=== PATIENT | male | born 1980 | race Caucasian/White ===

== ENCOUNTER 2019-12-26 07:11 | Emergency (ER) | payer SELFPAY ==
[~2019-12-26] VITALS: Ht 190.5 cm; Wt 93.2 kg
[~2019-12-26 07:11] MED LIST: IBUPROFEN800 MG PO; KLONOPIN 0.5MG0.5 MG PO; LORTAB 5/500 501 TAB PO; SYNTHROID0.1 MG/TAB PO; SYNTHROID0.112 MG/T PO; [UNRECOGNIZED DRUG - OTHER]
[2019-12-26 07:22] VITALS: TEMP 96.6
[2019-12-26] MEDS ORDERED: MEDROL 4MG DOSPA4 MG PO (07:52)
[2019-12-26 08:15] VITALS: BP 133/78; PULSE 87
[2019-12-27] MEDS ORDERED: ZOFRAN 4MG T4 MG/TAB PO (03:57)
[2019-12-27] MEDS ORDERED: ATIVAN 0.50.5 MG/TAB PO ×2 (14:41→14:47)
== END 2019-12-26 08:19 | disposition home or self-care (01) ==
LOC: COL.ER 07:11
DX: M54.32 Sciatica, left side (principal); M54.31 Sciatica, right side
CPT/HCPCS: J1885

== ENCOUNTER 2019-12-27 01:05 | Emergency (ER) | payer SELFPAY ==
[~2019-12-27 01:05] MED LIST changes: +MEDROL 4MG DOSPA4 MG PO
[2019-12-27 01:08] VITALS: BP 150/86; TEMP 97.9
[2019-12-27 02:25] LABS: HEMATOCRIT 41.8 % (42.0-52.0); HEMOGLOBIN 14.5 g/dl (13.5-18.0); MEAN CELL VOLUME 92 fl (80.0-100.0); MEAN CORPUSCULAR HEMOGLOBIN 32 pg (27.0-31.0); MEAN CORPUSCULAR HGB CONC 35 g/dl (33.0-37.0); MEAN PLATELET VOLUME 9.9 fl (7.4-10.4); PLATELET COUNT 160 K/mm3 (130-400); RED BLOOD COUNT 4.56 M/mm3 (4.20-5.60); REDCELL DISTRIBUTION WIDTH-CV 12.1 % (11.5-14.5)
[2019-12-27 02:38] LABS: ALANINE AMINOTRANSFERASE 25 U/L (4-49); ALBUMIN 4.2 gm/dL (3.5-5.0); ALKALINE PHOSPHATASE 49 U/L (50-136); ANION GAP 6 mmol/L (7-16); AST,SGOT 33 U/L (15-37); BILIRUBIN,TOTAL 0.4 mg/dL (0.0-1.0); BLOOD UREA NITROGEN 16 mg/dL (9-20); CALCIUM 9.1 mg/dL (8.4-10.2); CARBON DIOXIDE 26 mmol/L (22-30); CHLORIDE 105 mmol/L (98-107); CREATININE, serum 1.25 (0.66-1.25); GLUCOSE 146 mg/dL (74-106); LIPASE 96 U/L (23-300); POTASSIUM 4.2 mmol/L (3.4-5.0); SODIUM 138 mmol/L (137-145); TOTAL PROTEIN 7.1 gm/dL (6.4-8.2)
[2019-12-27 02:52] LABS: BAND 1 % (0-10); LYMPHOCYTE 11 % (20.0-51.0); NEUTROPHILS 87 % (42.0-75.2); PLATELET ESTIMATE NORMAL (NORMAL)
[2019-12-27 02:53] LABS: TROPONIN-I < 0.012 ng/mL (0.000-0.035)
[2019-12-27 03:02] LABS: COLLECTION METHOD CLEAN CATCH
[2019-12-27 03:14] LABS: PH 5 (5-8); SQUAMOUS EPITHELIAL None Seen /hpf; URINE APPEARANCE Clear; URINE BACTERIA None Seen /hpf; URINE BILIRUBIN Negative (NEGATIVE); URINE BLOOD Negative (NEGATIVE); URINE COLOR Yellow; URINE GLUCOSE Negative (NEGATIVE); URINE KETONE Negative (NEGATIVE); URINE LEUKOCYTE ESTERASE Negative (NEGATIVE); URINE NITRATE Negative (NEGATIVE); URINE PROTEIN(semi-quant) Negative (NEGATIVE); URINE RBC 0-2 /hpf; URINE UROBILINOGEN Negative (NEGATIVE)
[2019-12-27 03:26] LABS: THYROID STIMULATING HORMONE 0.705 uIU/mL (0.465-4.680)
[2019-12-27] MEDS ORDERED: ZOFRAN 4MG T4 MG/TAB PO (03:57)
[2019-12-27 04:29] VITALS: PULSE 62
[2019-12-27] MEDS ORDERED: ATIVAN 0.50.5 MG/TAB PO ×2 (14:41→14:47)
== END 2019-12-27 04:12 | disposition home or self-care (01) ==
LOC: COL.ER 01:05
PROVIDERS: Emergency Medicine
DX: M79.10 Myalgia, unspecified site (principal); R05 Cough; R11.2 Nausea with vomiting, unspecified; R10.9 Unspecified abdominal pain; E03.9 Hypothyroidism, unspecified; M54.32 Sciatica, left side; Z79.899 Other long term (current) drug therapy; Z20.828 Contact with and (suspected) exposure to other viral communicable diseases
CPT/HCPCS: J1885; J2405; J7030

== ENCOUNTER 2019-12-27 14:17 | Emergency (ER) | payer SELFPAY ==
[~2019-12-27] VITALS: Ht 190.5 cm; Wt 92.7 kg
[~2019-12-27 14:17] MED LIST changes: +ZOFRAN 4MG T4 MG/TAB PO
[2019-12-27 14:23] VITALS: TEMP 98.8
[2019-12-27 14:40] VITALS: BP 128/111; PULSE 103
[2019-12-27] MEDS ORDERED: ATIVAN 0.50.5 MG/TAB PO ×2 (14:41→14:47)
== END 2019-12-27 14:55 | disposition home or self-care (01) ==
LOC: COL.ER 14:17
DX: F41.9 Anxiety disorder, unspecified (principal); Z20.828 Contact with and (suspected) exposure to other viral communicable diseases

== ENCOUNTER 2019-12-28 23:35 | Emergency (ER) | payer SELFPAY ==
[~2019-12-28 23:35] MED LIST changes: +ATIVAN 0.50.5 MG/TAB PO
[2019-12-29] MEDS ORDERED: FLEXERIL 1010 MG/TAB PO (10:38)
[2019-12-29] MEDS ORDERED: ZYPREXA ZYD10 MG/TAB PO (10:38)
== END 2019-12-28 23:53 | disposition left against medical advice (07) ==
LOC: COL.ER 23:35
DX: Z72.89 Other problems related to lifestyle (principal)

== ENCOUNTER 2019-12-29 06:51 | Emergency (ER) | payer SELFPAY ==
[~2019-12-29] VITALS: Ht 190.5 cm; Wt 95.5 kg
[2019-12-29 06:55] VITALS: TEMP 98.3
[2019-12-29 07:38] LABS: BASO % 0.7 % (0.0-2.0); EOS # 0.1 (0.0-0.7); EOS % 0.8 % (0-4.0); GRAN # 3.2 (1.4-6.5); GRAN % 51.8 % (42.2-75.2); HEMATOCRIT 43.8 % (42.0-52.0); HEMOGLOBIN 14.8 g/dl (13.5-18.0); LYMPH # 2.5 (1.2-3.4); LYMPH % 40.6 % (20.0-51.0); MEAN CELL VOLUME 94 fl (80.0-100.0); MEAN CORPUSCULAR HEMOGLOBIN 32 pg (27.0-31.0); MEAN CORPUSCULAR HGB CONC 34 g/dl (33.0-37.0); MEAN PLATELET VOLUME 10.2 fl (7.4-10.4); MONO # 0.4 (0.1-0.6); MONO % 5.9 % (1.7-9.3); PLATELET COUNT 172 K/mm3 (130-400); RED BLOOD COUNT 4.66 M/mm3 (4.20-5.60); REDCELL DISTRIBUTION WIDTH-CV 12.6 % (11.5-14.5)
[2019-12-29 07:41] LABS: ALANINE AMINOTRANSFERASE 54 U/L (4-49); ALBUMIN 4.5 gm/dL (3.5-5.0); ALKALINE PHOSPHATASE 48 U/L (50-136); ANION GAP 7 mmol/L (7-16); AST,SGOT 146 U/L (15-37); BILIRUBIN,TOTAL 0.6 mg/dL (0.0-1.0); BLOOD UREA NITROGEN 15 mg/dL (9-20); CALCIUM 9.7 mg/dL (8.4-10.2); CARBON DIOXIDE 30 mmol/L (22-30); CHLORIDE 103 mmol/L (98-107); CREATININE, serum 1.39 (0.66-1.25); GLUCOSE 105 mg/dL (74-106); POTASSIUM 3.7 mmol/L (3.4-5.0); SODIUM 140 mmol/L (137-145); TOTAL PROTEIN 7.3 gm/dL (6.4-8.2)
[2019-12-29 07:50] LABS: ACETAMINOPHEN < 10 ug/mL (10-30); ALCOHOL(ethanol),MEDICAL < 10 mg/dL; SALICYLATE < 1.0 mg/dL
[2019-12-29 07:55] LABS: COLLECTION METHOD CLEAN CATCH
[2019-12-29 08:04] LABS: MUCOUS Present /lpf; PH 5 (5-8); SQUAMOUS EPITHELIAL None Seen /hpf; URINE APPEARANCE Clear; URINE BACTERIA None Seen /hpf; URINE BILIRUBIN Negative (NEGATIVE); URINE BLOOD Negative (NEGATIVE); URINE COLOR Yellow; URINE GLUCOSE Negative (NEGATIVE); URINE KETONE Trace (NEGATIVE); URINE LEUKOCYTE ESTERASE Negative (NEGATIVE); URINE NITRATE Negative (NEGATIVE); URINE PROTEIN(semi-quant) Negative (NEGATIVE); URINE RBC 0-2 /hpf; URINE UROBILINOGEN Negative (NEGATIVE)
[2019-12-29 08:10] LABS: TRICYCLIC ANTIDEPRESS URINE NEGATIVE
[2019-12-29 09:53] VITALS: BP 123/76; PULSE 65
[2019-12-29] MEDS ORDERED: ZYPREXA ZYD10 MG/TAB PO (10:38)
[2019-12-29] MEDS ORDERED: FLEXERIL 1010 MG/TAB PO (10:38)
== END 2019-12-29 10:43 | disposition home or self-care (01) ==
LOC: COL.ER 06:51
PROVIDERS: Emergency Medicine
DX: F30.9 Manic episode, unspecified (principal); M54.31 Sciatica, right side; E03.9 Hypothyroidism, unspecified